=== PATIENT | male | born 1945 | race Caucasian/White ===

== ENCOUNTER 2017-04-18 07:46 | Day surgery (SDC) | payer OTHER ==
[2017-04-17 17:36] VITALS: BMI 33.5
[2017-04-18] MEDS ORDERED: PROPOFOL 20 ML ONE ×2 (08:08)
[2017-04-18] MEDS ORDERED: LIDOCAINE HCL/PF 2% SDV 5ML VIAL ONE (08:11)
[2017-04-18 08:42] VITALS: TEMP 98
[2017-04-18 10:13] VITALS: BP 110/67; PULSE 62
--- NOTE | 2017-04-19 16:52 | PATH ---
Surgical Pathology Report Patient Name: HERMELINDO VASQUEZ [facility]. Rec. #: [id number] /Age/Gender: 1945 (Age: 71) / M Account: [id number] Location: [facility] AMBUL[facility] Taken: 04/18/2017 Received: 04/18/2017 Reported: 04/19/2017 Physicians: Chad Stevens M.D. Specimen(s) Received ANTRUM Clinical History Preoperative diagnosis: GERD Postoperative diagnosis: Antral ulcers Final Diagnosis ANTRUM, BIOPSY: MODERATE CHRONIC GASTRITIS, MILDLY ACTIVE WITH FEATURES OF REACTIVE GASTROPATHY. IMMUNOSTAIN IS NEGATIVE FOR H. PYLORI ORGANISMS. Electronically Signed Clara Hemphill M.D. Gross Description Received in formalin, labeled "antrum" are 2 blum, irregular portions of soft tissue measuring 0.3 and 0.4 cm. in greatest dimension. The specimens are submitted in toto in one cassette. /04/18/201704/18/2017
== END 2017-04-18 10:15 | disposition home or self-care (01) ==
LOC: FASU-ENDO 07:46
PROVIDERS: ATTEND Internal Medicine Gastroenterology
PROC: 0DB68ZX Excision of Stomach, Via Natural or Artificial Opening Endoscopic, Diagnostic (ICD-10-PCS; principal; 2017-04-18 09:25)
DX: K29.50 Unspecified chronic gastritis without bleeding (principal); R12 Heartburn
CPT/HCPCS: 82962; 88305-TC; 88342-TC

== ENCOUNTER 2018-02-28 07:28 | Day surgery (SDC) | payer OTHER ==
[2018-02-28 07:44] VITALS: BMI 33.0
[2018-02-28] MEDS ORDERED: PROPOFOL 20 ML ONE (09:21)
[2018-02-28 10:31] VITALS: TEMP 97.8
[2018-02-28 10:35] VITALS: BP 121/75; PULSE 54
--- NOTE | 2018-03-04 14:17 | PATH ---
Surgical Pathology Report Patient Name: HERMELINDO VASQUEZ [facility]. Rec. #: [id number] /Age/Gender: 1945 (Age: 72) / M Account: [id number] Location: [facility] Taken: 02/28/2018 Received: 02/28/2018 Reported: 03/04/2018 Physicians: Chda Stevens M.D. Specimen(s) Received A: BX ANTRUM B: CECUM Clinical History History of polyps and gastritis Postoperative diagnosis: Gastritis, polyp Final Diagnosis A. ANTRUM, BIOPSY: GASTRIC MUCOSA WITH CHRONIC GASTRITIS. IMMUNOSTAIN FOR H. PYLORI IS NEGATIVE. NEGATIVE FOR INTESTINAL METAPLASIA. B. CECUM POLYP, POLYPECTOMY: TUBULAR ADENOMA. Electronically Signed Horace Arriaza M.D. Gross Description A. Received in formalin, labeled "antrum biopsy" are 2 blum, irregular portions of soft tissue measuring 0.4 and 0.5 cm. in greatest dimension. The specimens are submitted in toto in one cassette. B. Received in formalin, labeled "polyp cecum" are 4 blum, irregular portions of soft tissue ranging from 0.1-0.4 cm. in greatest dimension. The specimens are submitted in toto in one cassette. /03/01/2018 saudi03/01/2018
== END 2018-02-28 10:40 | disposition home or self-care (01) ==
LOC: FASU-ENDO 07:28
PROVIDERS: ATTEND Internal Medicine Gastroenterology
PROC: 0DB68ZX Excision of Stomach, Via Natural or Artificial Opening Endoscopic, Diagnostic (ICD-10-PCS; 2018-02-28)
PROC: 0DBH8ZX Excision of Cecum, Via Natural or Artificial Opening Endoscopic, Diagnostic (ICD-10-PCS; principal; 2018-02-28 09:32)
DX: Z86.010 Personal history of colon polyps (principal); D12.0 Benign neoplasm of cecum; K29.50 Unspecified chronic gastritis without bleeding; R10.13 Epigastric pain
CPT/HCPCS: 82962; 88305-TC; 88342-TC